=== PATIENT | female | born 1950 | race Two or more races ===

== ENCOUNTER 2019-09-18 08:12 | Outpatient (CLI) | payer OTHER ==
[~2019-09-18 08:12] MED LIST: DIOVAN HCT 160-1 TAB PO; [UNRECOGNIZED DRUG - OTHER]
== END 2019-09-18 10:30 | disposition home or self-care (01) ==
LOC: EDBD 08:12 → NUCLEAR 08:12
PROVIDERS: ATTEND Internal Medicine
DX: I11.9 Hypertensive heart disease without heart failure (principal); I49.8 Other specified cardiac arrhythmias

== ENCOUNTER 2019-12-16 12:55 | Emergency (ER) | payer OTHER ==
[~2019-12-16] VITALS: Ht 170.2 cm; Wt 74.8 kg
[2019-12-16] MEDS ORDERED: NEURONTIN300 MG PO (13:11)
[2019-12-16] MEDS ORDERED: HUMULIN 70100 UNIT/2 SUBCUTANEO (13:12)
[2019-12-16] MEDS ORDERED: GLIMEPIRIDE4 MG (13:13)
[2019-12-16] MEDS ORDERED: LIPITOR20 MG PO (13:14)
[2019-12-16] MEDS ORDERED: CARDURA1 MG PO (13:14)
== END 2019-12-16 16:55 | disposition home or self-care (01) ==
LOC: ER 12:55
DX: S00.83XA Contusion of other part of head, initial encounter (principal); S80.01XA Contusion of right knee, initial encounter; W06.XXXA Fall from bed, initial encounter; Y93.89 Activity, other specified; Y92.092 Bedroom in other non-institutional residence as the place of occurrence of the external cause; Y99.8 Other external cause status

== ENCOUNTER 2020-01-02 10:40 | Outpatient (CLI) | payer OTHER ==
[~2020-01-02 10:40] MED LIST changes: +CARDURA1 MG PO; +GLIMEPIRIDE4 MG; +HUMULIN 70100 UNIT/2 SUBCUTANEO; +LIPITOR20 MG PO; +NEURONTIN300 MG PO
== END 2020-01-02 18:56 | disposition home or self-care (01) ==
LOC: OFIC 805 10:40
PROVIDERS: ATTEND Otolaryngology
DX: R22.1 Localized swelling, mass and lump, neck (principal); H91.8X3 Other specified hearing loss, bilateral; R42 Dizziness and giddiness

== ENCOUNTER 2020-01-28 09:38 | Emergency (ER) | payer OTHER ==
[~2020-01-28] VITALS: Ht 172.7 cm; Wt 77.1 kg
[2020-01-28] MEDS ORDERED: CLEOCIN HCL150 MG PO (10:43)
[2020-01-28] MEDS ORDERED: INTESTINEX680 M2 PO (10:43)
== END 2020-01-28 10:59 | disposition home or self-care (01) ==
LOC: ER 09:38
DX: M96.831 Postprocedural hemorrhage of a musculoskeletal structure following other procedure (principal)

== ENCOUNTER 2020-02-29 11:41 | Outpatient (CLI) | payer OTHER ==
[~2020-02-29 11:41] MED LIST changes: +CLEOCIN HCL150 MG PO; +INTESTINEX680 M2 PO
== END 2020-02-29 12:30 | disposition home or self-care (01) ==
LOC: OFIC 805 11:41
PROVIDERS: ATTEND Otolaryngology
DX: R22.1 Localized swelling, mass and lump, neck (principal); I69.998 Other sequelae following unspecified cerebrovascular disease; H91.8X2 Other specified hearing loss, left ear

== ENCOUNTER 2020-04-04 10:27 | Outpatient (CLI) | payer OTHER | END 2020-04-04 12:00 | disposition home or self-care (01) | LOC: OFIC 805 10:27 | PROVIDERS: ATTEND Otolaryngology | DX: R22.1 Localized swelling, mass and lump, neck (principal); E04.1 Nontoxic single thyroid nodule ==

== ENCOUNTER 2020-04-11 07:46 | Outpatient (CLI) | payer OTHER | END 2020-04-11 07:49 | disposition home or self-care (01) | LOC: SONOGRAMA 07:46 | PROVIDERS: ATTEND Pathology Anatomic Pathology & Clinical Pathology | DX: D34 Benign neoplasm of thyroid gland (principal); E04.8 Other specified nontoxic goiter; R22.1 Localized swelling, mass and lump, neck; E04.1 Nontoxic single thyroid nodule ==

== ENCOUNTER 2020-05-09 10:47 | Outpatient (CLI) | payer OTHER | END 2020-05-09 12:00 | disposition home or self-care (01) | LOC: OFIC 805 10:47 | PROVIDERS: ATTEND Otolaryngology | DX: E04.1 Nontoxic single thyroid nodule (principal); D11.0 Benign neoplasm of parotid gland ==

== ENCOUNTER 2021-05-22 08:35 | Outpatient (CLI) | payer OTHER | END 2021-05-22 08:36 | disposition home or self-care (01) | LOC: NUCLEAR 08:35 | PROVIDERS: ATTEND Internal Medicine | DX: I87.2 Venous insufficiency (chronic) (peripheral) (principal) ==

== ENCOUNTER 2021-05-22 12:48 | Outpatient (CLI) | payer OTHER | END 2021-05-22 12:54 | disposition home or self-care (01) | LOC: RAD 12:48 | PROVIDERS: ATTEND Internal Medicine | DX: M54.6 Pain in thoracic spine (principal); M54.59 Other low back pain ==

== ENCOUNTER 2021-05-22 16:41 | Outpatient (CLI) | payer OTHER | END 2021-05-22 16:43 | disposition home or self-care (01) | LOC: LAB 16:41 | PROVIDERS: ATTEND Internal Medicine | DX: D64.0 Hereditary sideroblastic anemia (principal); D50.0 Iron deficiency anemia secondary to blood loss (chronic) ==

== ENCOUNTER → 2022-06-10 | Outpatient (CLI) | payer OTHER | END | disposition home or self-care (01) | LOC: NUCLEAR 09:59 | PROVIDERS: ATTEND Internal Medicine | DX: R00.2 Palpitations (principal) ==

== ENCOUNTER 2023-03-15 12:08 | Outpatient (CLI) | payer OTHER | END 2023-03-15 12:16 | disposition home or self-care (01) | LOC: RAD 12:08 | PROVIDERS: ATTEND Internal Medicine | DX: M54.2 Cervicalgia (principal); Z88.8 Allergy status to other drugs, medicaments and biological substances ==

== ENCOUNTER 2023-11-12 08:55 | Outpatient (CLI) | payer OTHER | END 2023-11-12 09:12 | disposition home or self-care (01) | LOC: NUCLEAR 08:55 | PROVIDERS: ATTEND Internal Medicine | DX: I87.2 Venous insufficiency (chronic) (peripheral) (principal) ==